=== PATIENT | male | born 1950 | race Caucasian/White ===

== ENCOUNTER 2017-09-18 11:05 | Day surgery (SDC) | payer OTHER ==
[2017-09-18] MEDS ORDERED: IOHEXOL 350 MG/ML 100 ML BTL (for Cath Lab) OTHER ONE (11:06)
[2017-09-18 11:35] VITALS: BP 170/84; PULSE 61; RESP 18; TEMP 98.4; O2SAT 98
[2017-09-18] MEDS ORDERED: SODIUM BICARBONATE 100 MEQ in D5W 1000 ML IV SCH (11:45)
[2017-09-18] MEDS ORDERED: no home meds (11:45)
[2017-09-18 12:33] LABS: CREATININE 0.8 MG/DL (0.60-1.30)
--- NOTE | 2017-09-18 12:59 | PD.VS.PN ---
Pre-operative Note Pre-operative diagnosis: PAD, L LE Planned procedure: Aortogram w/ L LE angiogram possible endovascular intervention Interval History: Pt has been feeling well and no changes in health that would preclude OR. Labs: pending Blood: none needed Imaging: will make in OR Orders: NPO Post-operative destination: DOCU Operative site marked: Yes Consent: Informed consent has been obtained from Abdirizak Hammond. I have explained the procedure in detail and discussed the risks, benefits, and potential complications. All questions have been answered. Pedro Pablo Houston MD Sep 18, 2017 12:59
[2017-09-18] MEDS ORDERED: HEPARIN-NS/PF FLUSH BAG 1,000 ML IV FLUSH ONE (14:56)
[2017-09-18] MEDS ORDERED: HEPARIN SODIUM - IV 10,000 UNITS/10 ML VIAL ONE (14:56)
[2017-09-18] MEDS ORDERED: MIDAZOLAM HCL 2 MG/2 ML VIAL ONE ×2 (14:56→15:29)
[2017-09-18] MEDS ORDERED: MIDAZOLAM HCL 2 MG/2 ML VIAL IV PUSH ONE ×2 (15:05→15:30)
[2017-09-18] MEDS ORDERED: HEPARIN SODIUM - IV 10,000 UNITS/10 ML VIAL IV PUSH ONE (15:15)
--- NOTE | 2017-09-18 15:42 | HHI.PR ---
cc: Pedro Pablo Houston MD Immediate Post Op Note Procedure Date: Sep 18, 2017 Pre Op Diagnosis: L LE rest pain, PAD Post Op Diagnosis: L LE rest pain, PAD Surgeon: Pedro Pablo Houston Guide Cruise(s): none Procedure: Aortogram w/ L LE angiogram L SFA orbital atherectomy and EDUCATIONAL ADMINISTRATION TEACHER (5mm) R GEOMATICS PROFESSOR Angioseal Findings: L SFA occlusion and calcific stenosis Additional Information: 2 vessel runoff to foot Complications: none Specimen(s) removed: none Estimated blood loss: 10mL Anesthesia: MAC Drains: None Patient to: PACU Patient Condition: Good Implant/Devices: SEE IMPLANT LOG (if applicable) Date/Time of Procedure: SEE SURGICAL CARE RECORD Pedro Pablo Houston MD Sep 18, 2017 15:42
--- NOTE | 2017-09-18 15:47 | CATHPROC ---
[facility] HIS Report Study Information Study Number Admission Scheduled Start Study Start [id number] Sep 18 2017 11:05AM 09/18/2017 Sep 18 2017 2:54PM [place] Service Cath Endovascular Study Admit Source Facility Department Other [facility] - Heavy Equipment Service Manager Physician and Clinical Staff Initial MD Houston, Pedro Pablo Machine Installer Larissa Sanderson,RN Recorder Abdirizak Prado,RT(R) Scrub Finn Knox,RT(R) Procedures Performed Procedure Location (Site) Vessel Name Abdominal Angiogram Abd Aorta (A3) Aorta INSERTER OPERATOR SFA (left) Femoral Art Wire insertion Fem Art (right) Femoral Art Equipment Time Wood Gang Sawyer Description Size Mfg Part Number Used/Scraped [id number] 15:08 ANGIO-DYNAMICS OMNI FLUSH 65CM CATHETER FR 4 Used *[id number] DBP- CARDIOVASCULAR CATHETER, STEALTH SOLID 15:21 [id number] Used SYSTEMS INC. 2.0MM *[id number] CARDIOVASCULAR VPR-GW-14 15:22 WIRE, FIRM (VIPER) 335 Used SYSTEMS INC. *[id number] INTRODUCER SET, 15:08 COOK INC. FR 5 [id number] *[id number] Used MICROPUNCTURE STIFF BALLOON, ADVANCE 18 LP .018 5 [id number] 15:23 COOK/MARTHA 5 X 20 Used X 20 *[id number] CXI-4.0-35-135- 15:15 COOK/MARTHA CATHETER, FR4 CXI SUPPORT FR 4 Used P-NS-0 *[id number] SHEATH, FR6 HAILEY 1 FLEXOR [id number] 15:15 COOK/MARTHA FR 6 Used 55CM *[id number] WIRE, GUIDE APPROACH [employer] DEAN [id number] 15:15 COOK/MARTHA 300CM Used MICROWIRE *[id number] 15:37 DAIG/ST. MELVIN MEDICAL ANGIOSEAL, FR6 VIP FR 6 Used *[id number] 15:08 [employer] INDUSTRIES PACK, CCL CUSTOM * Used *[id number] 2557-33 15:14 Oligomerix MEDICAL WIRE, BURROWS 260CM .035 260CM Used *[id number] TUBING, PRESSURE INJECTION [id number] 15:08 NAMIC PACER 72" Used 72" *[id number] 15:08 NYCOMED OMNIPAQUE, 300 MG, 150ML 150ML [id number] Used 15:08 NYCOMED OMNIPAQUE, 300 MG, 50ML 50ML [id number] Used [id number] 15:08 YODER MEDICAL BLANKET,WARM AIR CCL * Used *[id number] 15:08 TERUMO MEDICAL SHEATH, FR4 TERUMO (10CM) FR 4 Used *[id number] WIRE, ANGLED GLIDE .035 [id number] 15:08 TERUMO MEDICAL/MARTHA 260CM Used 260CM *[id number] Equipment Model, Serial, Lot Number and Expiration Data Description Model Number Serial Number Lot Number Expiration Date ANGIOSEAL, FR6 VIP [id number] 03-27-2018 BALLOON, ADVANCE 18 LP .018 5 X [id number] 07-31-2020 20 CATHETER, FR4 CXI SUPPORT [id number] 05-29-2020 CATHETER, STEALTH SOLID 2.0MM [id number] 06-27-2019 SHEATH, FR6 HAILEY 1 FLEXOR [id number] 06-26-2020 55CM WIRE, GUIDE APPROACH [employer] DEAN [id number] 08-12-2021 MICROWIRE WIRE, BURROWS 260CM .035 [id number] 02-25-2020 History: Allergies Allergy Reaction penicillin G QUESTIONABLE Labs Creatinine (mg/dl) 0.50-1.30 0.8 CPK-MB (ng/ML) 0.50-3.60 Not Drawn Medication Medication Total Dose (Bolus/Oral) Medication Total Dosage/Unit 1% XYLOCAINE 20 mL FENTANYL 150 mcg HEPARIN 5000 units VERSED 4 mg Medications (Bolus/Oral) Medication Time Given Dosage/Unit Administered By Reason VERSED 09/18/2017 3:05:53 PM 2 mg Larissa Sanderson 2 mg VERSED given in lab by Larissa Sanderson, SHAZIA via Peripheral IV. Ordered by Pedro Pablo Houston. FENTANYL 09/18/2017 3:06:13 PM 50 mcg Larissa Sanderson 50 mcg FENTANYL given in lab by Larissa Sanderson, SHAZIA via Peripheral IV. Ordered by Pedro Pablo Houston. 1% XYLOCAINE 09/18/2017 3:07:09 PM 20 mL Pedro Pablo Houston 20 mL 1% XYLOCAINE given in lab by Pedro Pablo Houston in Right Groin via Subcutaneous. Ordered by Pedro Pablo Houston. HEPARIN 09/18/2017 3:15:50 PM 5000 units Larissa Sanderson 5000 units HEPARIN given in lab by Larissa Sanderson, SHAZIA via Peripheral IV. Ordered by Pedro Pablo Houston. FENTANYL 09/18/2017 3:28:24 PM 50 mcg Adamy, Larissa 50 mcg FENTANYL given in lab by Larissa Sanderson, RN via Peripheral IV. Ordered by Pedro Pablo Houston. VERSED 09/18/2017 3:30:15 PM 2 mg Adamy, Larissa 2 mg VERSED given in lab by Larissa Sanderson RN via Peripheral IV. Ordered by Pedro Pablo Houston. FENTANYL 09/18/2017 3:31:47 PM 50 mcg Adamy, Larissa 50 mcg FENTANYL given in lab by Larissa Sanderson, SHAZIA via Peripheral IV. Ordered by Pedro Pablo Houston. Medication (Drip) Medication Time Given Dosage/Unit Concentration/Unit Diluent (ml) Solution SODIUM BICARBONATE 09/18/2017 3:00:33 PM 100 mL/hr 150 1000 NaCl .9 DRIP Patient arrived on 100 mL/hr SODIUM BICARBONATE DRIP given by Pedro Pablo Houston in Left Antecubital via Peripheral IV. Pump/Drip Flow = 0 ml/hr using NaCl .9 with a concentration of 150 in 1000 ml. Ordered by Pedro Pablo Houston. Initial Case Assessment Cardiovascular HR Rhythm NIBP 60 sr 158/66 Edema Present Skin color Skin None Normal Warm Dry Circulatory - Right Pulses Femoral 2 Scale (0,1,2,3,4,d) Circulatory - Left Pulses Femoral 2 Scale (0,1,2,3,4,d) Neurological State Oriented to time-place- Alert Moves all extremities person Respiration - General Respiration Rate SpO2 (%) O2 (lpm) (B/min) 18 98 0 Chronological Log Time Study Chronological Log 14:54:24 Patient arrived via Bed. 14:54:29 Patient Name, D.O.B, / Armband Verified By R.N. 14:54:30 Consent signed by the physician and the patient and verified by the Heavy Equipment Service Manager staff. 14:54:31 Pre-op and post- op instructions given; patient acknowledges understanding of instructions. 14:55:11 Verbal Stimulation=2 Physical Stimulation=2 Airway=2 Respiration=2 TOTAL=8. (0=absent, 1=li mited, 2=present) 14:55:22 Presedation assessment performed by Heavy Equipment Service Manager RN. 14:55:24 Patient has been NPO for More than 6Hrs. Vitals capture started with the following parameters, Patient=Adult, Interval=5 min, Initial Pr bbgxko=494 mmHg, 14:57:09 Deflation Rate=5 mmHg, Cuff placed on Right Ankle 14:58:36 HR=63 bpm, SSOJ=618/66 mmhg, SpO2=98.0 %, Resp=20 B/min, Blackburn=2 14:59:32 Reference ECG taken 15:00:02 Skin Breakdown-L great toe discoloration. 15:00:13 A # 20 IV was noted in the Antecubital (left). Grade = 0 Patient arrived on 100 mL/hr SODIUM BICARBONATE DRIP given by Pedro Pablo Houston in Left Antecubita l via Peripheral IV. 15:00:33 Pump/Drip Flow = 0 ml/hr using NaCl .9 with a concentration of 150 in 1000 ml. Ordered by Pedro Pablo Díaz. 15:00:57 History and physical on the chart or being dictated. Assessment: Initial Case, HR=60 BPM, Rhythm=sr, RLOO=170/66 mmhg, Edema=None, Color=Normal, Ski n = Warm, Dry Right Pulses: Femoral=2 15:00:59 Left Pulses: Femoral=2 Neurological: State=Alert, Ox3, AN Respiration: Resp=18 B/min, SpO2=98 %, O2=0 lpm 15:01:27 Bilateral groins prepped with 2% chlorhexidine, and draped after a 3 minute waiting time. 15:02:47 HR=66 bpm, NJLZ=560/82 mmhg, SpO2=97.0 %, Resp=9 B/min, Blackburn=2 15:05:53 2 mg VERSED given in lab by Larissa Sanderson, SHAZIA via Peripheral IV. Ordered by Jake Houston Time Out. Correct patient, correct procedure, correct physician, power injector loaded with con trast with surgical team 15:06:02 present. Time Out Concurred by MD and individual staff in procedure. Loaded by Audrey Sanderson rn, ve rified . 15:06:13 50 mcg FENTANYL given in lab by Larissa Sanderson, SHAZIA via Peripheral IV. Ordered by Rio Houston. 15:06:41 Presedation re-assessment performed by Heavy Equipment Service Manager RN. 15:06:42 Case Start 15:06:45 Verbal Stimulation=2 Physical Stimulation=2 Airway=2 Respiration=2 TOTAL=8. (0=absent, 1=li mited, 2=present) 15:07:09 20 mL 1% XYLOCAINE given in lab by Pedro Pablo Houston in Right Groin via Subcutaneous. Ordered by Pedro Pablo Houston. 15:07:18 Access site was Right Femoral Artery. A INTRODUCER SET, MICROPUNCTURE STIFF FR 5 was advanced into the Fem Art (right) using the Perc utaneous 15:07:43 technique. 15:07:53 HR=64 bpm, PKVQ=788/73 mmhg, SpO2=97.0 %, Resp=51 B/min, Blackburn=2 A SHEATH, FR4 TERUMO (10CM) FR 4 was exchanged in the Fem Art (right). This was necessary in or guido to 15:09:35 accomodate a larger catheter. 15:09:40 A WIRE, ANGLED GLIDE .035 260CM 260CM was inserted via Fem Art (right). A OMNI FLUSH 65CM CATHETER FR 4 was advanced over a wire. OMNIPAQUE, 300 MG, 150ML 150ML was us ed for 15:09:49 injections. 15:10:09 Through a OMNI FLUSH 65CM CATHETER FR 4, The Abdominal Aorta was injected with 12 cc's of c ontrast. 15:10:31 A WIRE, ANGLED GLIDE .035 260CM 260CM was inserted via Fem Art (right). 15:10:35 Wire removed 15:10:39 Power Injections down left leg through 4 fr. omniflush. 15:12:52 HR=60 bpm, HFSK=098/67 mmhg, SpO2=93.0 %, Resp=42 B/min, Blackburn=2 15:15:50 5000 units HEPARIN given in lab by Larissa Sanderson, SHAZIA via Peripheral IV. Ordered by Pedro Pablo Houston. 15:17:10 A WIRESTORMY 260CM .035 260CM was inserted via Fem Art (right). A SHEATH, FR6 HAILEY 1 FLEXOR 55CM FR 6 was exchanged in the Fem Art (right). This was necessary in order to 15:17:19 accomodate a larger catheter. A CATHETER, FR4 CXI SUPPORT FR 4 was advanced over a wire. OMNIPAQUE, 300 MG, 150ML 150ML was u sed for 15:17:40 injections. 15:17:49 HR=61 bpm, ORBJ=732/69 mmhg, SpO2=94.0 %, Resp=44 B/min 15:21:32 The previous wire was exchanged for a WIRE, FIRM (VIPER) 335. 15:22:46 HR=64 bpm, MOCR=069/71 mmhg, SpO2=94.0 %, Resp=26 B/min, Blackburn=2 15:24:32 An CATHETER, STEALTH SOLID 2.0MM catheter was inserted into the SFA (left). 15:27:28 2.0 solid CSI in use in Left SFA. 15:28:24 HR=77 bpm, MJWN=030/116 mmhg, SpO2=97.0 %, Resp=24 B/min, Blackburn=2 15:28:24 50 mcg FENTANYL given in lab by Larissa Sanderson, SHAZIA via Peripheral IV. Ordered by Rio Houston 15:29:44 Catheter was removed w/o difficulty 15:30:15 2 mg VERSED given in lab by Larissa Sanderson, SHAZIA via Peripheral IV. Ordered by Jake Houston 15:30:20 A BALLOON, ADVANCE 18 LP .018 5 X 20 5 X 20 was inserted over WIRE, FIRM (VIPER) 335 via th e SFA (left). 15:30:44 In the SFA (left) a BALLOON, ADVANCE 18 LP .018 5 X 20 5 X 20 was inflated to 8 atms for 1 20 seconds. 15:31:47 50 mcg FENTANYL given in lab by Larissa Sanderson, SHAZIA via Peripheral IV. Ordered by Robert. Rosemarie 15:32:58 HR=78 bpm, JSCW=752/100 mmhg, SpO2=82.0 %, Resp=11 B/min, Blackburn=2 15:36:53 Balloon Removed. 15:37:35 The previous wire was exchanged for a WIRE, BURROWS 260CM .035 260CM. 15:37:57 HR=65 bpm, NKAA=978/80 mmhg, SpO2=94.0 %, Resp=33 B/min, Blackburn=2 15:38:54 ANGIOSEAL, FR6 VIP FR 6 placement in the Fem Art (right) 15:39:30 Case End 15:39:33 Sterile dressing applied to site 15:39:41 No case complications noted. 15:39:43 Cine recording checked. 15:39:53 Implantable Device card placed in patient's chart. 15:42:52 HR=59 bpm, PMLI=361/78 mmhg, SpO2=93.0 %, Resp=21 B/min, Blackburn=2 15:44:29 Vitals capture stopped. 15:44:36 Patient moved to stretcher End Study - Contrast Media Used In Study Contrast Total Opened (mL) Total Used (mL) Total Wasted (mL) Omnipaque 55 55 0 End Study - Maximum Contrast Load Max Contrast Load (mL) 445.7 End Study - Radiation Exposure Fluoro Time (minutes) 7.4 End Study - Patient Disposition Complications Transferred To Telemetry Bed
[2017-09-18 15:50] VITALS: BP 158/81; PULSE 61; RESP 14; O2SAT 96
[2017-09-18] MEDS ORDERED: DO NOT ADM ANY ANTICOAGULANT DRUGS PRN (16:18)
--- NOTE | 2017-09-18 16:49 | MP ---
cc: Pedro Pablo Houston MD DATE OF OPERATION: 09/18/2017 PREOPERATIVE DIAGNOSIS: Left lower extremity rest pain, peripheral arterial occlusive disease. POSTOPERATIVE DIAGNOSIS: Left lower extremity rest pain, peripheral arterial occlusive disease. PROCEDURE PERFORMED: 1. Aortogram with left lower extremity angiograms. 2. Left SFA orbital atherectomy and angioplasty with a 5 mm balloon. ATTENDING SURGEON:. Pedro Pablo Houston MD ANESTHESIA: Local with sedation. INDICATION: Mr. Garcia is a 66-year-old gentleman with left lower extremity rest pain and diminished ABIs. He is taken to the operating room for angiographic evaluation and treatment. There was no prior catheter-based imaging available for my review. DESCRIPTION OF PROCEDURE: Informed consent was obtained from the patient. He was taken to the operating room and placed supine on the operating table. An appropriate timeout was taken to ensure the patient's identity, the operative site and planned procedure. The administration of antibiotics was not necessary as this is a clean procedure without any planned implantation of any foreign object. Everyone in the room agreed with the timeout and we proceeded. His bilateral groins were prepped and the right groin was anesthetized with 1% lidocaine. A 21-gauge micropuncture needle was used to access the right common femoral artery. This was exchanged using Seldinger technique for a micropuncture sheath after which a 0.035 Glidewire was introduced. The micropuncture sheath was exchanged for a 4-Lao sheath and the VCF catheter was placed over the wire and through the sheath and aortogram and pelvic arteriogram was obtained. The Glidewire was reintroduced and navigated down into the left common femoral artery and VCF catheter was advanced over this and the left lower extremity arteriogram was obtained. The patient was systemically heparinized with 5000 units of IV heparin. A 0.035 Altman wire was introduced through the VCF catheter and the VCF catheter was removed and the 4-Lao sheath removed and a 6-Lao 55-cm antral sheath was introduced. A CXI catheter was placed over the Altman, navigated down to the mid-SFA. The Altman was exchanged for a OCCUPATIONAL MEDICINE SPECIALIST wire and using the OCCUPATIONAL MEDICINE SPECIALIST and CXI we were able to navigate past the occlusion into the distal SFA. The ViperWire was then introduced and the CXI catheter was removed and the SFA was atherectomized using the old atherectomy system and post-atherectomy was dilated with a 5 mm balloon. At the completion angiogram showed excellent result without any recoil or extravasation. The wire, catheter and sheath were removed and the groin was closed with an Angio-Seal. There were no complications. I was present and scrubbed and performed the entire procedure. INTERPRETATION OF IMAGES: The patient has a patent infrarenal aorta, common iliac arteries, external iliac arteries, and hypogastric arteries bilaterally. There is no hemodynamically significant stenoses. The left common femoral artery is patent. The profunda is patent. The SFA is patent until the mid-SFA at which point there are significant calcific stenoses and a chronic occlusion. The distal SFA reconstitutes and the popliteal artery is patent. There was 2-vessel runoff to the ankle. After atherectomy and angioplasty, there is excellent result without any recoil or extravasation and no flow-limiting dissection. MD PHILIP Thakur/DEVON , 03:47 PM , 04:48 PM
[2017-09-18] MEDS ORDERED: hydrALAZINE HCL 20 MG/ML VIAL ONE (17:12)
[2017-09-18] MEDS ORDERED: hydrALAZINE HCL 20 MG/ML VIAL IV PUSH ONE (17:12)
[2017-09-18 17:45] VITALS: BP 135/66; PULSE 68; RESP 16
== END 2017-09-18 18:00 | disposition home or self-care (01) ==
LOC: HDIC 11:05 → HDOC 11:05
PROVIDERS: ATTEND Surgery
DX: I70.222 Atherosclerosis of native arteries of extremities with rest pain, left leg (principal); I10 Essential (primary) hypertension; J44.9 Chronic obstructive pulmonary disease, unspecified
CPT/HCPCS: 37225; 75625; 75710; 82565; 99152; 99153; C1714; C1725; C1751; C1760; C1769; C1893; G0269; J1644; J2250; J3010; J7070; J0360; Q9967